=== PATIENT | female | born 1980 | race Caucasian/White ===

== ENCOUNTER 2022-03-11 14:10 | Outpatient (CLI) | payer OTHER, SELFPAY ==
--- NOTE | 2022-03-11 15:00 | CRLHL7_ITS ---
For Patients: As a result of the Century Cures Act, medical imaging exams and procedure reports are released immediately into your electronic medical record. You may view this report before your referring provider. If you have questions, please contact your health care provider. Indication: Abdominal pain Technique: Volumetric multidetector CT images of the abdomen and pelvis were without the administration of intravenous contrast. Comparison: None available. Findings: The lung bases are clear. The liver is normal in attenuation without intrahepatic biliary ductal dilatation. The gallbladder is unremarkable without evidence of radiopaque calculus. There is no significant common biliary ductal dilatation or abrupt cut off. The spleen is normal in attenuation and size. The stomach and duodenum are grossly unremarkable. The pancreas is normal in attenuation without significant atrophy. The adrenal glands are unremarkable. There are nonobstructive calculi within the left collecting system without evidence of hydronephrosis or distal obstructive calculus. There is moderate stool seen throughout the colon with minimal distal colonic diverticulosis without definite evidence of diverticulitis. The appendix is unremarkable. There is no significant mesenteric, retroperitoneal, or pelvic sidewall lymph nodes. The aorta is nonaneurysmal. There is no significant atherosclerotic disease appreciated. There is demonstration of a left ovarian cystic lesion measuring 4.5 x 2.8 centimeters in greatest dimension. There is no free fluid or free air. The anterior abdominal wall is intact without significant hernias. The lumbar vertebral body heights are grossly maintained with mild positional straightening of the normal lumbar lordosis. There is no significant spondylolisthesis or displaced fracture. Impression: Nephrolithiasis without evidence of distal obstructive calculus. Left ovarian cystic lesion measuring 4.5 centimeters in greatest dimension. Follow-up with ultrasound for improved characterization if there is persistent clinical concern. Moderate stool seen throughout the colon. Normal appendix. Please note that all CT scans at this facility use dose modulation, iterative reconstruction, and/or weight-based dosing when appropriate to reduce radiation dose to as low as reasonably achievable. Dictated by Triston Kim MD @ 03/11/2022 3:41:11 PM (Electronically Signed)
== END 2022-03-11 14:11 | disposition home or self-care (01) ==
PROVIDERS: Visit Provider Physician Assistant
DX: R10.9 Unspecified abdominal pain (principal); N20.0 Calculus of kidney; N83.202 Unspecified ovarian cyst, left side
CPT/HCPCS: 74176

== ENCOUNTER 2022-03-12 14:03 | Outpatient (CLI) | payer OTHER, SELFPAY ==
[2022-03-12 21:29] LABS: C Reactive Protein* < 0.5 mg/dL (0.5-1.0)
== END 2022-03-12 14:04 | disposition home or self-care (01) ==
LOC: NFLDREF 14:06
PROVIDERS: Visit Provider Nurse Practitioner Family
DX: R31.9 Hematuria, unspecified (principal); R10.9 Unspecified abdominal pain
CPT/HCPCS: 86140; 87086